=== PATIENT | male | born 1980 | race African-American/Black ===

== ENCOUNTER 2022-06-17 00:25 | Emergency (ER) | payer SELFPAY ==
[~2022-06-17] VITALS: Ht 182.8 cm; Wt 68.0 kg
[2022-06-17 00:48] LABS: HEMATOCRIT 42 % (40-54); HEMOGLOBIN 13.8 g/dL (13.3-17.7); MEAN CORPUSCULAR HEMOGLOBIN 29 pg (25-34); MEAN CORPUSCULAR HGB CONC 33 g/dL (32-36); MEAN CORPUSCULAR VOLUME 87 fL (80-99); WHITE BLOOD COUNT 5.5 10^3/uL (4.3-11.0)
[2022-06-17 00:49] LABS: BASOPHILS % (AUTO) 0 % (0-10); EOSINOPHILS % (AUTO) 0 % (0-10); LYMPHOCYTES % (AUTO) 37 % (12-44); MEAN PLATELET VOLUME 11.7 fL (9.0-12.2); MONOCYTES # (AUTO) 0.5 X 10^3 (0.0-1.0); MONOCYTES % (AUTO) 8 % (0-12); NEUTROPHILS % (AUTO) 55 % (42-75); PLATELET COUNT 153 10^3/uL (130-400)
[2022-06-17 01:12] LABS: CREATININE SERUM 0.98 MG/DL (0.60-1.30); POTASSIUM 3.6 MMOL/L (3.6-5.0)
[2022-06-17 01:13] LABS: ALBUMIN 4.3 GM/DL (3.2-4.5); BILIRUBIN,TOTAL 0.3 MG/DL (0.1-1.0); CALCIUM 8.7 MG/DL (8.5-10.1); TOTAL PROTEIN 8.7 GM/DL (6.4-8.2)
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
[2022-06-17] MEDS ORDERED: LACTATED RINGERS 1,000 ML IV ONE (01:30)
[2022-06-17 05:55] LABS: BILIRUBIN,URINE NEGATIVE (NEGATIVE); CLARITY,URINE CLEAR; COLOR,URINE YELLOW; GLUCOSE, URINE (UA) NEGATIVE (NEGATIVE); KETONES,URINE TRACE (NEGATIVE); LEUKOCYTE ESTERASE ,URINE NEGATIVE (NEGATIVE); NITRITE,URINE POSITIVE (NEGATIVE); PROTEIN,URINE NEGATIVE (NEGATIVE)
[2022-06-17 06:02] LABS: BACTERIA,URINE LARGE /HPF
[2022-06-17 06:06] LABS: AMPHETAMINE SCREEN, URINE NEGATIVE (NEGATIVE); BARBITURATE SCREEN URINE NEGATIVE (NEGATIVE); BENZODIAZEPINES SCREEN URINE NEGATIVE (NEGATIVE); CANNABINOID SCREEN, URINE NEGATIVE (NEGATIVE); COCAINE SCREEN URINE NEGATIVE (NEGATIVE); METHADONE STAT NEGATIVE (NEGATIVE); OPIATE SCREEN URINE NEGATIVE (NEGATIVE); OXYCODONE STAT NEGATIVE (NEGATIVE); PROPOXYPHENE STAT NEGATIVE (NEGATIVE); TRICYCLIC ANTIDEPRESSANTS SCRE NEGATIVE (NEGATIVE)
[2022-06-17 06:08] VITALS: BP 137/76
[2022-06-17] MEDS ORDERED: CEPH500T PO (06:13)
[2022-06-17] MEDS ORDERED: CEPHALEXIN 250 MG (KEFLEX) CAP PO ONE (06:15)
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
--- NOTE | 2022-06-17 07:13 | Diagnostic Imaging Report ---
INDICATION: Pain. Three views were obtained. FINDINGS: There is mild arthrosis of the acromioclavicular joint. The alignment is otherwise normal. There is no fracture or dislocation. Left lung is clear. Soft tissues are unremarkable. IMPRESSION: Mild arthrosis of the acromioclavicular joint, otherwise unremarkable. Dictated by: Dictated on workstation # [id number]
== END 2022-06-17 06:18 | disposition home or self-care (01) ==
LOC: ER FS 00:29
DX: S00.511A Abrasion of lip, initial encounter (principal); S80.212A Abrasion, left knee, initial encounter; S00.31XA Abrasion of nose, initial encounter; M54.2 Cervicalgia; N39.0 Urinary tract infection, site not specified; F10.129 Alcohol abuse with intoxication, unspecified; F17.290 Nicotine dependence, other tobacco product, uncomplicated; Z28.311 Partially vaccinated for COVID-19; V89.2XXA Person injured in unspecified motor-vehicle accident, traffic, initial encounter; Y92.410 Unspecified street and highway as the place of occurrence of the external cause; Y90.7 Blood alcohol level of 200-239 mg/100 ml
CPT/HCPCS: 36415; 70450; 70486; 71045; 72125; 73030; 80053; 80306; 81000; 85025; 87077; 87088; 87186; 87491; 87591; 99283; G0480; 80320